=== PATIENT | female | born 1990 | race African-American/Black ===

== ENCOUNTER 2017-03-27 08:10 | Emergency (ER) | payer MEDICAID, OTHER ==
[~2017-03-27] VITALS: Ht 167.6 cm; Wt 83.9 kg
[2017-03-27 09:01] VITALS: BP 131/93
== END 2017-03-27 09:18 | disposition home or self-care (01) ==
LOC: ER 08:10
DX: S39.012A Strain of muscle, fascia and tendon of lower back, initial encounter (principal); K02.9 Dental caries, unspecified; X58.XXXA Exposure to other specified factors, initial encounter; Y93.89 Activity, other specified; Y99.8 Other external cause status; Y92.89 Other specified places as the place of occurrence of the external cause